=== PATIENT | male | born 1955 | race Caucasian/White ===

== ENCOUNTER 2024-05-20 03:52 | Emergency (ER) | payer OTHER ==
[2024-05-20 04:28] LABS: #Basophils 0.09 10x3/uL (0.0-0.2); %Basophils 1.4 % (0.0-1.0); %Lymphocytes 30.1 % (21.0-51.0); %Monocytes 5.7 % (0.0-10.0); %Neutrophils 59.6 % (42.0-75.0); Hemoglobin 13.3 g/dL (14.0-18.0); Mean Corpuscular HGB CONC 32.4 g/dL (32.0-36.0); Mean Corpuscular Volume 89.3 fL (78.0-98.0); Platelet Count 195 10x3/uL (130-400); RBC Distribution Width 14.9 % (11.5-14.5); Red Blood Cell (RBC) Count 4.59 mill/uL (4.70-6.10)
[2024-05-20 04:57] LABS: ALT (SGPT) 12 U/L (8-55); AST (SGOT) 21 U/L (5-34); Albumin 3.9 g/dL (3.4-4.8); Alkaline Phosphatase 67 U/L (40-110); Anion Gap 14 mmol/L (10-20); BUN (Urea Nitrogen) 15 mg/dL (8.4-25.7); Bilirubin, Total 0.9 mg/dL (0.2-1.2); Calc. Creatinine Clearance 0 mL/min (70-130); Calcium 8.9 mg/dL (7.8-10.44); Carbon Dioxide 23 mmol/L (23-31); Chloride 110 mmol/L (98-107); Estimated GFR 76; Globulin 2.8 g/dL (2.4-3.5); Glucose 107 mg/dL (80-115); Potassium 4.1 mmol/L (3.5-5.1); Protein, Total 6.7 g/dL (5.8-8.1); Sodium 143 mmol/L (136-145)
[2024-05-20 05:00] LABS: Troponin I 0.046 ng/mL (< 0.028)
[2024-05-20] MEDS ORDERED: Aspirin Chewable 81 MG TAB ONE (05:59)
[2024-05-20] MEDS ORDERED: dilTIAZem 25 MG/5 ML VIAL ONE (05:59)
[2024-05-20] MEDS ORDERED: Ipratropium Bromide 2.5 ml Neb ONE (09:22)
== END 2024-05-20 12:32 | disposition short-term general hospital (02) ==
LOC: ERS 03:52
DX: I48.20 Chronic atrial fibrillation, unspecified (principal); I11.0 Hypertensive heart disease with heart failure; I50.9 Heart failure, unspecified; I25.10 Atherosclerotic heart disease of native coronary artery without angina pectoris; I25.2 Old myocardial infarction; E78.5 Hyperlipidemia, unspecified; Z86.73 Personal history of transient ischemic attack (TIA), and cerebral infarction without residual deficits
CPT/HCPCS: 71045; 80053; 84484; 85025; 93005; 96374; J7644